=== PATIENT | male | born 1995 | race Caucasian/White ===

== ENCOUNTER 2020-11-23 18:57 | Emergency (ER) | payer BC, SELFPAY ==
--- NOTE | ~2020-11-23 | XR_ITS ---
XR foot RT min 3V 11/23/2020 19:31 Indication: 2 blocks on right first toe Procedure: 4 views right foot Comparison: No prior studies for comparison. Findings: There is a comminuted minimally displaced tuft fracture right first distal phalanx. No othe r fractures. Mild soft tissue swelling. No foreign bodies. Impression: 1: Comminuted minimally displaced tuft fracture right first distal phalanx. Reviewed, dictated and finalized at location A. NO SURVEILLANCE OFFICER Impression: 1: Comminuted minimally displaced tuft fracture right first distal phalanx.
--- NOTE | 2020-11-23 19:08 | ED.LOWEXIN ---
HPI - Extremity Injury (Lower) General Chief Complaint: Extremity Injury, Lower Stated Complaint: right 1st digit toe Time Seen by Provider: 11/23/20 19:26 Source: patient and RN notes reviewed Mode of arrival: ambulatory Limitations: no limitations History of Present Illness HPI Narrative: 25-year-old male presents with concern for injury to the first digit of his right foot. Reports several hours ago he dropped a tool box on the digit causing an open wound and pain. Denies any intervention. Reports it has been bleeding for past 2 hours. Reports he is not up-to-date on his tetanus vaccination. Denies any other injury. Denies decreased sensation. Denies any other foot swelling or redness MD complaint: foot injury Related Data Allergies Allergy/AdvReac Type Severity Reaction Status Date / Time No Known Allergies Allergy Unverified 05/05/15 07:13 Review of Systems Review of Systems: Narrative: CONSTITUTIONAL: Denies malaise, chills, sweats, or fever. SKIN: Reports laceration of the dorsal aspect of the first digit of the right foot MUSCULOSKELETAL: Reports pain to the first digit of the right foot NEUROLOGIC: Denies numbness, weakness All systems reviewed & are unremarkable except as noted in HPI and below PMFSH Social History Social History Smoking status: Never smoker Alcohol intake: never Comments At time of signature, agree with nursing past medical, surgical, social and family history. There is no relevant family history pertinent to the presenting complaint Exam Narrative: Exam Narrative: GENERAL: Well-appearing, well-nourished, and in no acute distress. HEAD: Normocephalic, atraumatic. EYES: PERRLA, conjunctivae clear NECK: Supple. CHEST: Speaks in full sentences. No respiratory distress. HEART: Regular rate and rhythm. Normal and equal peripheral pulses. EXTREMITIES: First digit of right foot has normal sensation, limited range of motion due to pain. Mild edema, no erythema or ecchymosis. 4 /5 strength with digit flexion and extension. Normal sensation with sensitivity to light touch and pain. General tenderness. No open wounds, no skin tenting, no devitalized tissue or atrophy, no trophic changes, no obvious deformity, alignment normal, nearby joints and structures intact. Distal pulses palpable and equal bilaterally, skin warm, dry, pink. Capillary refill less than 3 seconds. SKIN: Warm, dry. Superficial yet persistently bleeding laceration noted to the dorsal aspect of the first digit of the right foot below the nailbed, not involving the nail bed. NEURO: Alert and oriented x3. PSYCH: Normal mood and affect Course Course Emergency Course: Patient is aware of diagnosis, understands and agrees to treatment plan. Anticipatory guidance given. Patient agrees to follow-up as directed and is aware of reasons to seek care at the emergency department. Portions of this record may have been created with voice recognition software Vital Signs Vital signs: Vital Signs Temperature 98.8 F 11/23/20 19:19 Pulse Rate 72 11/23/20 19:19 Respiratory Rate 16 11/23/20 19:19 Blood Pressure 126/69 11/23/20 19:19 Pulse Oximetry 99 11/23/20 19:19 Temperature 98.8 F 11/23/20 19:19 Pulse Rate 72 11/23/20 19:19 Respiratory Rate 16 11/23/20 19:19 Blood Pressure 126/69 11/23/20 19:19 Pulse Oximetry 99 11/23/20 19:19 Reviewed. Procedures Laceration Laceration 1: Date: 11/23/20 Time: 19:37 Site: lower extremity Side (If applicable): right Size (cm): 1.5 Description: linear Depth: simple, single layer Local Anesthetic: none (Let gel) ====== Skin Level ====== Skin layer closed with: dermabond ====== Subcutaneous Layer ====== ====== Muscle Layer ====== ====== Tendon Layer ====== Dressing: Nonstick, Telfa dressing. Despite closing laceration, due to comminuted fracture of the phalanx, swelling smal
[2020-11-23 19:19] VITALS: BP 126/69; PULSE 72; RESP 16; TEMP 37.1; O2SAT 99
[2020-11-23] MEDS: TETANUS,DIPHTHERIA,AC PERTUSSIS ADULT (0.5 ML) BOOSTRIX IM (19:40)
[2020-11-23] MEDS: LIDOCAINE, EPINEPHRINE, TETRACAINE VISCOUS SOLN 3 ML TOPICAL (19:47)
== END 2020-11-23 20:36 | disposition home or self-care (01) ==
PROVIDERS: Emergency Provider Nurse Practitioner
DX: S90.211A Contusion of right great toe with damage to nail, initial encounter (principal); S92.421B Displaced fracture of distal phalanx of right great toe, initial encounter for open fracture; S91.111A Laceration without foreign body of right great toe without damage to nail, initial encounter; W20.8XXA Other cause of strike by thrown, projected or falling object, initial encounter; Z23 Encounter for immunization
CPT/HCPCS: 12001; 11740; 73630; 90471; 90715; 99213; G0463

== ENCOUNTER 2022-01-25 20:09 | Emergency (ER) | payer BC, SELFPAY ==
--- NOTE | ~2022-01-25 | XR_ITS ---
EXAMINATION: XR chest 1V portable Exam Date/Time: 01/25/2022 21:14 CDT CLINICAL HISTORY: fever,cough,mid-upper back pain, x 4 days hx smoker Comparison: 04/02/2006. RESULT: Lines, tubes, and devices: None. Lungs and pleura: Patchy areas of subsegmental airspace opacity in the left lower lung. Cardiomediastinal silhouette: Stable cardiomediastinal silhouette. Other: No acute osseous or upper abdominal finding. IMPRESSION: Left lower lung opacities may reflect pneumonia in the appropriate clinical context. Reviewed, dictated and finalized at location K. IMPRESSION: Left lower lung opacities may reflect pneumonia in the appropriate clinical con text.
[2022-01-25 20:22] VITALS: BP 118/65; PULSE 92; RESP 16; TEMP 37.9; O2SAT 99
--- NOTE | 2022-01-25 20:55 | ED.FEVER ---
HPI - Fever General Chief Complaint: Fever Stated Complaint: fever, back pain Time Seen by Provider: 01/25/22 20:55 Source: patient Mode of arrival: ambulatory Limitations: no limitations History of Present Illness HPI Narrative: Patient is a previously healthy 26-year-old male presenting to the emergency department for evaluation of fever, cough, sore throat and myalgias. Patient states he felt as if he had a sinus infection the beginning of last week, reports runny nose, dry cough. He denies any chest pain or hemoptysis. He reports diffuse myalgias and feeling sore all over. Patient denies history of known COVID infection. He denies history of COVID vaccination. Denies recent sick contacts. He denies nausea, vomiting, abdominal pain. He denies dysuria, hematuria, penile pain or testicular pain. He denies penile pain or discharge. Patient denies rash or lower extremity swelling. Pt denies recent car or air travel. He denies history of tick exposure or tick bite that he is aware of;denies recent hunting, camping or significant outdoor activity. Related Data Allergies Allergy/AdvReac Type Severity Reaction Status Date / Time No Known Allergies Allergy Verified 01/25/22 20:25 Review of Systems Review of Systems: CONSTITUTIONAL: Reports fever, chills EYES: Denies visual changes, redness, or discharge. ENT: Reports rhinorrhea, congestion, sore throat CARDIOVASCULAR: Denies chest pain, palpitations, or edema. RESPIRATORY: Reports cough without shortness of breath GASTROINTESTINAL: Denies abdominal pain, nausea, vomiting, or diarrhea. GENITOURINARY: Denies dysuria or hematuria. SKIN: Denies rash or itching. MUSCULOSKELETAL: Reports myalgias NEUROLOGIC: Denies headache, numbness, or weakness. [facility] Past Medical History Medical History (Updated 01/25/22 @ 22:08 by Bonnie Sorensen MD) Fracture of toe of right foot Social History Social History Smoking status: Never smoker Alcohol intake: never Exam Narrative: GENERAL: Awake, alert, conversant HEAD: Normocephalic, atraumatic. EYES: PERRLA and EOMI. ENT: Nares clear, no rhinorrhea or epistaxis. Mucous membranes moist. NECK: Supple. CHEST: No respiratory distress, breathing even and non labored, coarse breath sounds left lower lobe, no wheezing HEART: Regular rate, sinus rhythm ABDOMEN:Non distended, non tender EXTREMITIES: Normal range of motion. No edema. SKIN: Warm, dry, no rash. NEURO:No focal deficits. Alert and oriented x3 Course Vital Signs Vital signs: Vital Signs Temperature 37.9 C H 01/25/22 20: Pulse Rate 92 01/25/22 20: Respiratory Rate 16 01/25/22 20:22 Blood Pressure 118/65 01/25/22 20:22 Pulse Oximetry 99 01/25/22 20: Temperature 37.9 C H 01/25/22 20: Pulse Rate 78 01/25/22 21:30 Respiratory Rate 18 01/25/22 21:30 Blood Pressure 111/69 01/25/22 21:30 Pulse Oximetry 96 01/25/22 21:30 MDM - Fever MDM Narrative Medical decision making narrative: Patient presenting for evaluation of fever, rhinorrhea, cough. At the time of assessment, ABCs are intact and patient is noted to be febrile without significant tachycardia or hypotension. Oxygen saturation is 99% on room air. On exam, patient without abdominal pain, does have coarse breath sounds in the left lower lobe. Chest x-ray is obtained and is consistent with pneumonia. COVID swab is negative. Pt negative for influenza and strip. Other labs notable for leukocytosis, stable anemia. No electrolyte derangement or acute kidney injury. Patient is not meeting criteria for severe sepsis or septic shock. Patient was given IV fluids, Tylenol, first dose of antibiotic in the ER. As patient is not hypoxic with stable vital signs at time of reassessment, will plan for discharge home with antibiotic and strict return precautions. Patient does not have any other symptoms or reports of pain on exam. This does seem consistent with community-acquired pneu
[2022-01-25 21:05] LABS: Basophils Percent Auto 0.3 % (0.2-1.2); Eosinophils Percent Auto 0.2 % (0-4.4); Hematocrit 36.1 % (42.0-52.0); Hemoglobin 12.3 g/dL (14.0-18.0); Immature Granulocyte Absolute 0.03 K/mm3 (0.00-0.031); Immature Granulocyte Percent A 0.3 % (0-0.5); Lymphocytes Percent Auto 14.5 % (18.3-44.2); Mean Corpuscular HGB Conc 34.1 g/dl (32-36); Mean Corpuscular Hemoglobin 31.5 pg (26-34); Mean Corpuscular Volume 92.6 fl (80-100); Mean Platelet Volume 10.3 fl (7.4-10.4); Monocytes Absolute Auto 1.4 K/mm3 (0.1-0.6); Neutrophils Absolute Auto 7.9 K/mm3 (1.3-6.7); Neutrophils Percent Auto 71.7 % (45.5-73.1); Platelet Count Result 201 k/mm3 (150-375); Red Cell Distribution Width 11.9 % (11.5-14.5)
[2022-01-25 21:16] LABS: Alanine Aminotransferase 18 U/L (6-50); Albumin Level 4.5 g/dL (3.5-5.1); Alkaline Phosphatase 57 U/L (38-126); Anion Gap 10 mmol/L (8-16); Aspartate Amino Transferase 38 U/L (17-59); Bilirubin,Total 1.3 mg/dL (0.2-1.3); Blood Urea Nitrogen 10 mg/dL (9-20); Calcium 8.6 mg/dL (8.4-10.2); Carbon Dioxide 24 mmol/L (22-30); Chloride 98 mmol/L (98-107); Estimated CRCL calculation 134 ml/min; Estimated Glomerular Filt Rate > 60; Glucose 91 mg/dL (65-110); Potassium 4.1 mmol/L (3.4-5.0); Sodium 132 mmol/L (137-145)
[2022-01-25] MEDS: SODIUM CHLORIDE 0.9% IV 1,000 ML 999 ML IV CONT (21:22)
[2022-01-25] MEDS: KETOROLAC 15 MG/ML VIAL (*BKC) IV PUSH (21:22)
[2022-01-25] MEDS: ACETAMINOPHEN 500 MG TABLET 1000 MG PO (21:23)
[2022-01-25 21:27] LABS: Lipase 26 U/L (23-300)
[2022-01-25 21:30] VITALS: BP 111/69; PULSE 78; RESP 18; O2SAT 96
[2022-01-25 22:04] LABS: SARS-CoV-2 RNA PCR Negative
[2022-01-25 22:11] LABS: Appearance Urine Clear (Clear); Bilirubin Urine 1+ (Negative); Color Urine Yellow (Yellow); Glucose Urine UA Negative (Negative); Ketones Urine 1+ mg/dL (Negative); Leukocyte Esterase Ur Negative LEU/UL (Negative); Nitrate Urine Negative (Negative); Protein Urine Negative (Negative)
[2022-01-25 22:13] LABS: Mucus Urine Rare /lpf; RBC Urine 0-2 /hpf (0-2); WBC Urine 0-3 /hpf
[2022-01-25 22:15] LABS: Add Urine Microscopic? YES; Blood Urine Trace-Intact (Negative)
[2022-01-25] MEDS: DOXYCYCLINE 100 MG/NS 100 ML 100 MG/100 ML BAG IVPB (22:25)
[2022-01-25 22:53] VITALS: BP 107/68; PULSE 64; RESP 16; O2SAT 100
== END 2022-01-25 22:54 | disposition home or self-care (01) ==
PROVIDERS: Emergency Medicine; Emergency Provider Emergency Medicine
DX: J18.9 Pneumonia, unspecified organism (principal); Z28.310 Unvaccinated for COVID-19
CPT/HCPCS: 36415; 71045; 80053; 81001; 83690; 85025; 87081; 87804; 87880; 96361; 96365; 96375; 99284; A9270; C9803; J1885; J7030; U0003; U0005

== ENCOUNTER 2024-05-07 16:23 | Emergency (ER) | payer SELFPAY ==
[2024-05-07 16:28] VITALS: BP 121/75; PULSE 110; RESP 16; TEMP 36.6; O2SAT 98
--- NOTE | 2024-05-07 17:03 | PC.NURSE ---
Pt left without notifying canning machine operator was leaving. Pt did not answer when called to room to see a provider.
== END 2024-05-07 17:03 | disposition left against medical advice (07) ==
LOC: ANHED 17:10
DX: K08.89 Other specified disorders of teeth and supporting structures (principal)
CPT/HCPCS: 99199

== ENCOUNTER 2024-05-07 16:56 | Emergency (ER) | payer SELFPAY ==
--- NOTE | 2024-05-07 16:57 | ED.DENTAL ---
HPI - Dental/Oral General Chief complaint: Dental/Oral Stated complaint: oral infection Time Seen by Provider: 05/07/24 16:57 Source: patient Mode of arrival: ambulatory Limitations: no limitations History of Present Illness HPI Narrative: Jose Manuel is a 28-year-old male patient presenting to the clinic today with complaints a possible dental infection to the left lower number 20 tooth. He reports has pain and swelling for the past 2 days. Does not have a dentist. Related Data Allergies Allergy/AdvReac Type Severity Reaction Status Date / Time No Known Allergies Allergy Verified 05/07/24 17:15 Review of Systems Review of Systems: Pertinent positives per HPI. Patient denies any fever, chills, rash, headache, visual changes, dizziness, cough, runny nose, sore throat, shortness of breath, chest pain, palpitations, nausea, vomiting, diarrhea, constipation, abdominal pain, or any urinary issues. [facility] Past Medical History Medical History Fracture of toe of right foot Social History Social History Smoking status: Never smoker Alcohol intake: never Comments At the time of my signature, I reviewed and agree with the nursing past medical, surgical, social, and family history. There is no relevant family history pertinent to the patient complaint. Exam Narrative: General: Well-developed, well nourished, in no apparent distress Head: Normocephalic, atraumatic Eyes: Pupils equally round and reactive to light bilaterally, EOM intact, sclera and conjunctive clear, no discharge, lids normal Ears: TMs intact and clear, ear canals clear, no drainage, grossly hearing normal. Nose: Nares patent, no discharge, no inflammation, no sinus tenderness. Mouth: Oropharynx without lesions or masses, poor dentition, MMM. Dental pain to decayed 20 with mild gingival swelling. Neck: Supple, trachea midline, no enlargement of anterior or posterior cervical nodes, no thyroid masses or goiter palpable. Cardio: Regular rate and rhythm, s1 and s2 normal, no murmur appreciated. Resp: Clear to auscultation bilaterally anteriorly and posteriorly, no rhonchi, rales, wheezing or rubs Course Course Emergency Course: Portions of this record may have been created with voice recognition software. Level of Care: Express Care Visit Vital Signs Vital signs: Vital signs reviewed MDM - Dental/Oral MDM Narrative Medical decision making narrative: At the time of visit patient is resting comfortably on the exam table. Patient appears to be nontoxic. Plan: I suspect patient has dental pain. Prescription for amoxicillin was sent to the pharmacy and recommend following up with dentist as soon as possible. Supportive measures were discussed with the patient and they voiced understanding discharge instructions and agrees to treatment plan. Return precautions reviewed Differential Diagnosis Differential diagnosis: Likely gingival abscess, dental caries, toothache, dental abscess, fracture of tooth and aphthous ulcer Discharge Plan Discharge Clinical Impression: Toothache Patient Disposition: Home, Self-Care Condition: Stable Instructions: Antibiotic Form, Toothache (ED) Additional Instructions: Take amoxicillin as prescribed Increase fluids and stay well hydrated May apply Orajel to the affected area to help alleviate the pain May take Tylenol/Motrin as needed for pain May apply heat or cool compress to the affected area to help alleviate pain Follow-up with your dentist as soon as possible Prescriptions: New amoxicillin 875 mg tablet 875 mg PO Q12H 10 Days Qty: 20 0RF Follow-up/Referrals: PHYSICIAN,CEMENT [employer]ILRO[employer] LOADER [Primary Care Provider] - Time of Disposition: 17:13 Quality NIHSS Nursing Documentation ED NIHSS nursing documentation: reviewed/agree
[2024-05-07 17:05] VITALS: BP 130/68; PULSE 69; RESP 18; TEMP 36.7; O2SAT 100
== END 2024-05-07 17:27 | disposition home or self-care (01) ==
PROVIDERS: Emergency Provider Nurse Practitioner Family
DX: K08.89 Other specified disorders of teeth and supporting structures (principal)
CPT/HCPCS: 99213; G0463

== ENCOUNTER 2025-05-11 14:55 | Emergency (ER) | payer SELFPAY ==
--- NOTE | ~2025-05-11 | XR_ITS ---
EXAMINATION: XR chest 2V 05/11/2025 15:39 INDICATION: Cough for one week. TECHNIQUE:Frontal and lateral images of the chest were obtained. COMPARISON: 01/25/2022 FINDINGS: The lungs are clear. The cardiomediastinal silhouette is within normal limits. There are no pleural effusions. There is no pneumothorax suspected. Indeterminate 1.7 cm oval round radiopaque density projects over the left side of the lower neck. IMPRESSION: 1: No focal pulmonary consolidation. 2. Indeterminate 1.7 cm oval round radiopaque density projects over the left side of the lower neck. A radiopaque foreign body is possible. Correlate clinically. Dedicated x-rays of the soft tissues of the neck are recommended. Reviewed, dictated and finalized at location Q. IMPRESSION: 1: No focal pulmonary consolidation. 2. Indeterminate 1.7 cm oval round radiopaque density projects over the left si de of the lower neck. A radiopaque foreign body is possible. Correlate clinical ly. Dedicated x-rays of the soft tissues of the neck are recommended.
--- NOTE | 2025-05-11 14:56 | ED.URI ---
HPI - URI/Sore Throat General Chief Complaint: Upper Respiratory Infection Stated Complaint: Covid Symptoms Time Seen by Provider: 05/11/25 15:03 Source: patient, RN notes reviewed and old records reviewed Mode of arrival: ambulatory Limitations: no limitations History of Present Illness HPI Narrative: 29-year-old male presents to the [facility] concerns he may have COVID. Started with a cough last week, recently started with a sore throat, runny nose, body aches. Has taken Tylenol. Treatments prior to arrival: acetaminophen Related Data Home Medications ?Medication ?Instructions ?Recorded ?Confirmed ?Last Taken ?Type No Home Medications 05/11/25 05/11/25 Unknown History Allergies Allergy/AdvReac Type Severity Reaction Status Date / Time No Known Allergies Allergy Verified 05/11/25 15:24 Review of Systems Review of Systems: All systems reviewed & are unremarkable except as noted in HPI and below Constitutional: Constitutional: Reports as per HPI and Reports body ache(s) ENT: Reports as per HPI Cardiovascular: Cardiovascular: Reports no additional cardiovascular complaints, Denies chest pain and Denies dyspnea Respiratory: Respiratory: Reports as per HPI, Reports no additional respiratory complaints, Denies chest congestion, Reports cough and Denies dyspnea Musculoskeletal: Musculoskeletal: Reports no additional musculoskeletal complaints Integumentary/Breasts: Skin/Breast: Reports system reviewed and no additional complaints, except as docu PMFSH Past Medical History Medical History Fracture of toe of right foot Social History Social History Smoking status: Never smoker Alcohol intake: never Comments At the time of my signature, I reviewed and agree with the nursing past medical, surgical, social, and family history. There is no relevant family history pertinent to the patient complaint. Exam Const: General: cooperative, healthy appearing, comfortable, no acute distress, well developed, alert and well nourished Nutritional Appearance: well nourished Orientation/consciousness: patient oriented x3 Limitations: no limitations HENMT: Head: normal to inspection Ears: hearing grossly normal bilaterally, TM's normal bilaterally, EAC's normal and mastoids normal Face/Nose/Sinus: Normal external nose present, Normal nares present and No nasal discharge present Throat: posterior oropharynx normal, uvula midline and no uvular edema Eyes: General: appearance normal, both eyes and all related structures Alignment and Position: alignment normal Neck: Neck: normal visual inspection, full ROM, no lymphadenopathy and no meningeal signs Chest: Chest palpation & inspection: normal inspection of the chest Resp: Effort & Inspection: normal respiratory effort and able to speak in complete sentences Auscultation: clear to auscultation bilaterally, no crackles, no rales, no rhonchi and no wheezes Cardio: Rate: regular rate Skin: General skin exam: normal color and no rashes or lesions noted Neuro: General: patient oriented x3, gait normal, moves all extremities and no meningeal signs Cognition (Neuro): normal cognition Speech: normal speech Gait exam (Neuro): Normal gait present Extrem: General: normal to inspection, full ROM, capillary refill normal and normal gait Psych: Appearance: grossly normal and well kempt Mental Status: mental status grossly normal Speech and movement: Normal speech and movement present and Clear speech present Affect: normal affect Attitude: cooperative Course Course Emergency Course: Reviewed report with possible foreign body. No foreign body, no areas of palpation. On exam patient had a bead on the band that hold his glasses on, Level of Care: Express Care Visit Vital Signs Vital signs: Vital Signs Temperature 100.5 F H 05/11/25 15:00 Pulse Rate 100 05/11/25 15:00 Respiratory Rate 20 05/11/25 15:00 Blood Pressure 115/70 05/11/25 15:00 Pulse Oximetry 97 05/11/25 15:00 Oxygen Delivery Room Air 05/11/25 15:00 Temperature 100.5 F H 05/11/25 15:00 Pulse Rate 100 05/11/25 15:00 Respiratory Rate 20 05/11/25 15:00 Blood Pressure 115/70 05/11/25 15:00 Pulse Oximetry 97 05/11/25 15:00 Oxygen Delivery Room Air 05/11/25 15:00 Reviewed MDM - URI/Sore Throat MDM Narrative Medical decision making narrative: Patient sitting comfortably in exam room. Patient is nontoxic, low-grade fever noted. Patient has flu, COVID, strep were negative, will culture strep. Chest x-ray with no acute findings. Radiopaque foreign body is a bead on the strap on his glasses. Discharge instructions reviewed with patient, as well as provided in writing per nursing staff. The instructions also include specific and strict return/GO TO THE ER as well as f/u information. All questions have been answered, and the patient deny any further questions with discharge and discharge plan. Some parts of this dictation were generated by voice recognition software and may contain typographical and/or grammatical inaccuracies. Differential Diagnosis Differential diagnosis: Likely upper respiratory infection, otitis media, sinusitis, viral infection, bronchitis, influenza and pharyngitis Lab Data Labs: Lab Results 05/11/25 Range/Units 15:23 POC SARS CoV-2 Ag Negative (Negative) POC Grp A Strep Screen Negative (Negative) Reviewed Imaging Data Radiologist's impression: EXAMINATION: XR chest 2V 05/11/2025 15:39 INDICATION: Cough for one week. TECHNIQUE:Frontal and lateral images of the chest were obtained. COMPARISON: 01/25/2022 FINDINGS: The lungs are clear. The cardiomediastinal silhouette is within normal limits. There are no pleural effusions. There is no pneumothorax suspected. Indeterminate 1.7 cm oval round radiopaque density projects over the left side of the lower neck. IMPRESSION: 1: No focal pulmonary consolidation. 2. Indeterminate 1.7 cm oval round radiopaque density projects over the left side of the lower neck. A radiopaque foreign body is possible. Correlate clinically. Dedicated x-rays of the soft tissues of the neck are recommended. Critical Care Time Critical Care Time Critical Care Time: No Discharge Plan Discharge Clinical Impression: Upper respiratory infection Qualifiers: URI type: unspecified viral URI Qualified Code(s): J06.9 - Acute upper respiratory infection, unspecified Patient Disposition: Home Condition: Stable Instructions: Upper Respiratory Infection (DC) Additional Instructions: Your rapid strep swab was negative today at [facility]. A throat culture will be sent to the laboratory for further testing. If the test is positive, you will receive a phone call within 48 hours and an appropriate antibiotic will be initiated at that time. Your rapid COVID test were negative Your rapid flu test was negative Your chest x-ray did not show signs of a pneumonia Your symptoms are likely due to a viral illness, which is not treated with antibiotics. Typically viral infections last 7-10 days, can linger for couple of weeks. It is very important to treat your symptoms. Drink plenty of water, Gatorade, Pedialyte, ice pops or Jell-O. -Alternate Tylenol and Motrin per package directions for fever or pain. You can alternate every 4 hours -Antihistamine medication such as Zyrtec/Claritin/Brunilda during the day can help improve symptoms. -doing daily nasal irrigations can help relieve pressure your sinuses. Things like a Neti pot -Use Flonase twice a day for 5 days then daily to help reduce the inflammation and dry up your sinuses. -You can also use Mucinex. Be sure to drink plenty of water with this medication at least 8 ounces with every dose and it is important to drink 8 to 10 glasses of water per day. Water is a natural decongestant -Eat and drink things that are easy to swallow, like tea or soup, or popsicles. -Oral rinses such as: Salt water gargles and/or may use topical anesthetic (eg. Chloraseptic spray) or lozenges to relieve dryness or throat pain). -Frequent hand washing or hand wet primer powder blender is one of the best ways to prevent spread of infection. -Using a vaporizer or humidifier at night will also help thin secretions and help with coughing up phlegm. -Follow up with primary care provider in 7-10 days if condition is not improving - For new or worsening symptoms go directly to the nearest ER Patient Language: Korean Prescriptions: No Action No Home Medications Follow-up/Referrals: UNKNOWN,DOCTOR [Non-Staff] Stand Alone Forms: Work/School Release IP Time of Disposition: 15:56
[2025-05-11 15:00] VITALS: BP 115/70; PULSE 100; RESP 20; TEMP 38.1; O2SAT 97
[2025-05-11 15:25] LABS: EDCOVIDSCREEN Negative (Negative); EDSTREPNEGPOS1 Negative (Negative)
== END 2025-05-11 15:56 | disposition home or self-care (01) ==
PROVIDERS: Emergency Provider Nurse Practitioner
DX: J06.9 Acute upper respiratory infection, unspecified (principal); Z20.822 Contact with and (suspected) exposure to COVID-19
CPT/HCPCS: 71046; 87081; 87426; 87880; 99213; G0463

== ENCOUNTER 2025-05-14 08:43 | Emergency (ER) | payer SELFPAY ==
--- OUTSIDE RECORDS SUMMARY | 2010-01-22 04:00 | XMS_ITS | Continuity of Care Document ---
Author Organization [facility] Address [address] [place] [address] Phone Care Team Providers Care Business Insight And Analytics Manager Name Role Phone Phelps OD, Phil Unavailable Unavailable Procedures Procedure Date Eye Exam & Treatment Refraction Advance Directives Directive Yes / No Effective Date File Name No Information Encounters Encounter Description Practice Location Reason(s) For Visit Diagnoses Date Provider Providers Copied on Encounter [facility], [address], [place], [place], [id number], [place] tel:[phone] [facility] No Information [phone] Phelps OD Phil. [address] , [address], [place], [address], [place]. tel:[phone] Family History Family Member Type Diagnosis Age At Onset No Information Payers Payer name Insurance type Covered democrat ID Authoriza tiiliana(s) [employer] Plan CI [id number] Social History Type Description Quantity Date Captured Comments Sex Male Smoking Status No Information Chief Complaint And Reason For Visit No Information Reason For Referral Reason For Referral No Information History Of Present Illness Encounter Date Complaint History Of Prese nt Illness No Information Functional Status Date Functional Assessmen t No Information Instructions Date Instruction Additional Infor mation No Information Assessments Type Assessment Date No Information Patient Care Teams Name Effective Dates (start - stop) Status Members No Information
--- OUTSIDE RECORDS SUMMARY | 2010-01-22 04:00 | XMS_ITS | Continuity of Care Document ---
Author Organization [facility] [place] [address] [place] [address] Phone Care Team Providers Care Scheduling Analyst Name Role Phone Phelps OD, Phil Unavailable Unavailable Procedures Procedure Date Eye Exam & Treatment Refraction Advance Directives Directive Yes / No Effective Date File Name No Information Encounters Encounter Description Practice Location Reason(s) For Visit Diagnoses Date Provider Providers Copied on Encounter [facility], [address], [place], [place], [id number], [place] tel:[phone] [facility] No Information [phone] Phelps OD Phil. [address] , [address], [place], [address], [place]. tel:[phone] Family History Family Member Type Diagnosis Age At Onset No Information Payers Payer name Insurance type Covered democrat ID Authoriza tiiliana(s) [employer] Plan CI [id number] Social History Type Description Quantity Date Captured [...]
--- NOTE | ~2025-05-14 | XR_ITS ---
EXAMINATION: XR chest 1V portable 05/14/2025 09:53 INDICATION: Fever, body ache TECHNIQUE:A single portable AP upright frontal image of the chest was obtained. COMPARISON: 05/11/2025 FINDINGS: The lungs are clear. The cardiomediastinal silhouette is within normal limits. There are no pleural effusions. There is no pneumothorax suspected. IMPRESSION: 1: NO ACUTE CARDIOPULMONARY DISEASE. Reviewed, dictated and finalized at location Q.
--- OUTSIDE RECORDS SUMMARY | 2025-05-14 08:45 | XMS_ITS ---
Author Organization Unknown ENCOUNTERS Encounter Performer Location Date Diagnosis Diagnosis Status Pre Admit Sivakumar Keyes [facility] [address] [place] [address] [id number] Emergency EMERGENCY ROOM PHYSICIAN [facility] [address] [place] [address] [id number] TRI Pre Admit Flavia Bright [facility] [address] [place] [address] [id number] TRIAG Emergency Bonnieheber Sorensen [facility] [address] [place] [address] [id number] MIREYA *Note: Encounters from your own facility or health system may be excluded. Allergies, Adverse Reactions, Alerts Allergen Type Severity Identification Date Medications Name Date Quantity Days Supplied GPI Number
[2025-05-14 08:49] VITALS: BP 122/78; PULSE 83; RESP 18; TEMP 36.9; O2SAT 96
--- NOTE | 2025-05-14 09:11 | ED_ITS ---
HPI - General Adult General Chief complaint: Back Pain/Injury Stated complaint: I have an infection, I think it's my kidneys Time Seen by Provider: 05/14/25 08:44 History of Present Illness HPI narrative: 21-year-old male presents to the emergency department for evaluation for body ache and fatigue that had been going on for the last few days. Patient reports he had body aches fatigue and bilateral flank pain for the past few days. Patient states symptoms did resolve last night. At this time patient denies any pain or complaints. 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 Patient states he is making clear urine. Patient denies any pain with urination. Related Data Home Medications ?Medication ?Instructions ?Recorded ?Confirmed ?Last Taken ?Type No Home Medications 05/11/25 05/11/25 U nknown History Allergies Allergy/AdvReac Type Severity Reaction Status Date / Time No Known Allergies Allergy Verified 05/11/25 15:24 Review of Systems 2 Review of Systems: All systems reviewed & are unremarkable except as noted in HPI and below PMFSH Past Medical History Medical History Fracture of toe of right foot Social History Social History Smoking status: Never smoker Alcohol intake: never Exam 2 Narrative: APPEARANCE: Well appearing, no pain, no distress, well-nourished. HEAD: normocephalic, atraumatic. EYES: PERRLA/EOMI, conjunctivae clear. NOSE: Normal no drainage EARS:TMS clear with good light reflex. THROAT: Pharynx clear, no exudate. NECK: Supple. No adenopathy, no masses. RESPIRATORY: Airway patent, respirations nonlabored. Clear to auscultation bilaterally, no rales, rhonchi, wheezing. CARDIOVASCULAR: Regular rate and rhythm without murmurs rubs or gallops. ABDOMINAL: Soft, nontender, nondistended, normal bowel sounds MUSCULOSKELETAL: Moves all extremities. Strength/ROM intact, No edema, No calf tenderness. NEURO: Alert. Cranial nerves II through XII intact. Good gait. Good coordination SKIN: Warm, dry. Normal Color Course Vital Signs Vital signs: Vital Signs Temperature 98.4 F 05/14/25 08:49 Pulse Rate 83 05/14/25 08:49 Respiratory Rate 18 05/14/25 08:49 Blood Pressure 122/78 05/14/25 08:49 Pulse Oximetry 96 05/14/25 08:49 Oxygen Delivery Room Air 05/14/25 08:49 Temperature 98.4 F 05/14/25 08:49 Pulse Rate 83 05/14/25 08:49 Respiratory Rate 18 05/14/25 08:49 Blood Pressure 122/78 05/14/25 08:49 Pulse Oximetry 96 05/14/25 08:49 Oxygen Delivery Room Air 05/14/25 08:49 Medical Decision Making MDM Narrative Medical decision making narrative: 29-year-old male present to the emergency department for evaluation for body aches fatigue and flank pain. Patient is currently afebrile but does have a leukocytosis of 11.4 hemoglobin of 12.9. No acute abnormalities on the patient's CMP. Patient does have some trace hematuria and trace white blood cells on his UA with occasional squamous and no bacteria, urine culture was ordered. Chest x-ray shows no acute cardiopulmonary abnormality. Patient has currently no symptoms with no pain and no CVA tenderness to palpation. Differential Diagnosis Differential Diagnosis: Viral syndrome, dehydration, acute kidney injury, ureteral calculi, urinary tract infection Vital Signs Vital Signs: Vital Signs Temperature 98.4 F 05/14/25 08:49 Pulse Rate 83 05/14/25 08:49 Respiratory Rate 18 05/14/25 08:49 Blood Pressure 122/78 05/14/25 08:49 Pulse Oximetry 96 05/14/25 08:49 Oxygen Delivery Room Air 05/14/25 08:49 Temperature 98.4 F 05/14/25 08:49 Pulse Rate 83 05/14/25 08:49 Respiratory Rate 18 05/14/25 08:49 Blood Pressure 122/78 05/14/25 08:49 Pulse Oximetry 96 05/14/25 08:49 Oxygen Delivery Room Air 05/14/25 08:49 Lab Data Lab results reviewed: Yes I reviewed the patient's lab results. 05/14/25 09:27 05/14/25 09:27 Labs: Lab Results 05/14/25 05/14/25 Range/Units 09:27 10:28 WBC 11.4 H (4.5-10.0) K/mm3 RBC 4.22 L (4.6-6.20) M/mm3 Hgb 12.9 L (14.0-18.0) g/dL Hct 37.5 L (42.0-52.0) % MCV 88.9 (80-100) fl MCH 30.6 (26-34) pg MCHC 34.4 (32-36) g/dl RDW 11.6 (11.5-14.5) % Plt Count 237 (150-375) k/mm3 MPV 10.2 (7.4-10.4) fl Immature Gran % (Auto) 0.4 (0-0.5) % Neut % (Auto) 77.1 H (45.5-73.1) % Lymph % (Auto) 11.2 L (18.3-44.2) % [place] % (Auto) 10.0 H (2.6-8.5) % Eos % (Auto) 1.0 (0-4.4) % Baso % (Auto) 0.3 (0.2-1.2) % Lymph # (Auto) 1.28 (0.9-3.2) K/mm3 [place] # (Auto) 1.1 H (0.1-0.6) K/mm3 Eos # (Auto) 0.1 (0-0.3) K/mm3 Baso # (Auto) 0.0 (0.0-0.1) K/mm3 Abs Immat Gran (auto) 0.05 H (0.00-0.031) K/mm3 Absolute Neuts (auto) 8.8 H (1.3-6.7) K/mm3 Absolute Nucleated RBC 0.000 (0.0-0.012) K/mm3 Nucleated RBC % 0.0 (0.0-0.2) % Sodium 137 (137-145) mmol/L Potassium 3.5 (3.4-5.0) mmol/L Chloride 101 (98-107) mmol/L Carbon Dioxide 27 (22-30) mmol/L Anion Gap 9 (4-12) mmol/L BUN 9 (9-20) mg/dL Creatinine 0.73 (0.7-1.3) mg/dL Estim Creat Clear Calc 133 ml/min Estimated GFR > 60 (59 - ) Glucose 107 (65-110) mg/dL Calcium 9.2 (8.4-10.2) mg/dL Total Bilirubin 1.0 (0.2-1.3) mg/dL AST 27 (17-59) U/L ALT 22 (6-50) U/L Alkaline Phosphatase 68 (38-126) U/L Total Creatine Kinase 110 (55-170) U/L Total Protein 8.2 (6.3-8.2) g/dL Albumin 4.2 (3.5-5.1) g/dL Urine Color Dark yellow (Yellow) Urine Appearance Cloudy H (Clear) Urine pH 6.0 (5.0-9.0) Ur Specific [place] 1.026 (1.001-1.035) Urine Protein 2+ H (Negative) mg/dL Urine Glucose (UA) Negative (Negative) mg/dL Urine Ketones Trace H (Negative) mg/dL Ur Blood (Man) Trace (Negative) Urine Nitrate Negative (Negative) Urine Bilirubin 1+ H (Negative) Urine Urobilinogen >=8.0 H (<2.0) mg/dL Add Ur Microanalysis Reviewed Leukocyte Esterase Rfl Trace H (Negative) MONI/UL Urine RBC 6-10 H (0-2) /hpf Urine WBC 6-10 H (0-3) /hpf Ur Squamous Epith Cells Occasional (Few) /hpf Urine Bacteria None seen /hpf Urine Casts 11-20 Urine Mucus Present /lpf Imaging Data Radiologist's impression: Impressions Chest X-Ray 05/14/25 09:55 IMPRESSION: 1: NO ACUTE CARDIOPULMONARY DISEASE. Discharge Plan Discharge Clinical Impression: Acute viral syndrome Patient Disposition: Still a Patient Condition: Stable Instructions: Viral Syndrome (ED), Flank Pain (ED) Additional Instructions: Tylenol and ibuprofen for pain control. Drink plenty of fluids. Have close follow-up with your primary care physician. If you have any worsening symptoms then please call or return to the emergency department. You have a urine culture ordered, if this grows anything of concern we will call you in the next 24-48 hours. Patient Language: Sinhala Prescriptions: No Action No Home Medications Follow-up/Referrals: PHYSICIAN,AUTOMATION LEAD [Primary Care Provider, Internal Medicine] Stand Alone Forms: Work/School Release IP
[2025-05-14] MEDS: LACTATED RINGERS 1,000 ML 999 ML IV CONT ×2 (09:27→10:59)
--- NOTE | 2025-05-14 09:30 | PC.NURSE ---
pt unable to urinate, declining straight cath. will hit call light when he can provide sample.
[2025-05-14 09:34] LABS: Hematocrit 37.5 % (42.0-52.0); Hemoglobin 12.9 g/dL (14.0-18.0); Immature Granulocyte Percent A 0.4 % (0-0.5); Lymphocytes Absolute Auto 1.28 K/mm3 (0.9-3.2); Mean Corpuscular HGB Conc 34.4 g/dl (32-36); Mean Corpuscular Hemoglobin 30.6 pg (26-34); Mean Corpuscular Volume 88.9 fl (80-100); Nucleated Red Blood Cells Absolute Auto 0.000 K/mm3 (0.0-0.012); Nucleated Red Blood Cells Perc 0.0 % (0.0-0.2); Platelet Count Result 237 k/mm3 (150-375); Red Blood Count 4.22 M/mm3 (4.6-6.20); White Blood Count 11.4 K/mm3 (4.5-10.0)
[2025-05-14 09:45] LABS: Alanine Aminotransferase 22 U/L (6-50); Albumin Level 4.2 g/dL (3.5-5.1); Alkaline Phosphatase 68 U/L (38-126); Anion Gap 9 mmol/L (4-12); Aspartate Amino Transferase 27 U/L (17-59); Bilirubin,Total 1.0 mg/dL (0.2-1.3); Blood Urea Nitrogen 9 mg/dL (9-20); Calcium 9.2 mg/dL (8.4-10.2); Carbon Dioxide 27 mmol/L (22-30); Chloride 101 mmol/L (98-107); Creatine Kinase 110 U/L (55-170); Estimated CRCL calculation 133 ml/min; Estimated Glomerular Filt Rate > 60; Glucose 107 mg/dL (65-110); Potassium 3.5 mmol/L (3.4-5.0); Sodium 137 mmol/L (137-145); Total Protein 8.2 g/dL (6.3-8.2)
[2025-05-14 10:47] LABS: Add Urine Microscopic? YES; Appearance Urine Cloudy (Clear); Glucose Urine UA Negative (Negative); Leukocyte Esterase Ur Trace LEU/UL (Negative); Need Manual Microscopic Reviewed; Nitrate Urine Negative (Negative); Specific Grav Ur 1.026 (1.001-1.035)
== END 2025-05-14 12:09 | disposition home or self-care (01) ==
PROVIDERS: Emergency Provider Emergency Medicine
DX: B34.9 Viral infection, unspecified (principal)
CPT/HCPCS: 36415; 71045; 80053; 81001; 82550; 85025; 87086; 96360; 99283; J7120